=== PATIENT | male | born 1965 | race Two or more races ===

== ENCOUNTER 2019-07-14 01:12 | Emergency (ER) | payer OTHER ==
[~2019-07-14] VITALS: Ht 170.2 cm; Wt 70.3 kg
[2019-07-14 01:46] VITALS: BP 122/78
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
== END 2019-07-14 02:12 | disposition home or self-care (01) ==
LOC: ER 01:15
DX: S60.221A Contusion of right hand, initial encounter (principal); V49.49XA Driver injured in collision with other motor vehicles in traffic accident, initial encounter; Y93.89 Activity, other specified; Y92.488 Other paved roadways as the place of occurrence of the external cause; Y99.8 Other external cause status
CPT/HCPCS: 73130-TC